=== PATIENT | male | born 2000 | race Caucasian/White ===

== ENCOUNTER 2022-08-15 13:50 | Emergency (ER) | payer OTHER, SELFPAY ==
--- NOTE | ~2022-08-15 | XR_ITS ---
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 The distal phalanx and the middle and proximal phalanges appear intact, without fracture or dislocation. No periosteal react ion or bone destruction. No radiopaque soft tissue foreign body or subcutaneous emphysema. IMPRESSION: Distal soft tissue amputation of second digit Reviewed, dictated and finalized at location A.
[2022-08-15 14:13] VITALS: BP 115/74; PULSE 90; RESP 16; TEMP 36.6; O2SAT 97
--- NOTE | 2022-08-15 14:47 | ED.WOUNDLAC ---
HPI - Wound/Laceration General Chief Complaint: Wound/Laceration Stated Complaint: R. index finger lac. Time Seen by Provider: 08/15/22 14:21 Source: patient Mode of arrival: ambulatory Limitations: no limitations History of Present Illness HPI narrative: The patient is a 21 yo male presenting to the ER for evaluation of right finger tip injury. 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 Patient is. Patient is up-to-date on his tetanus. Patient reports mild amount of bleeding at the site. Patient reports pain at the fingertip. Pain is aching in nature. Patient denies any pain in the joint spaces. Pt is reporting mild nausea also. Related Data Allergies Allergy/AdvReac Type Severity Reaction Status Date / Time No Known Allergies Allergy Verified 08/15/22 14:17 Review of Systems Review of Systems: CONSTITUTIONAL: Denies fever CARDIOVASCULAR: Denies chest pain RESPIRATORY: Denies cough or dyspnea. GASTROINTESTINAL: Denies abdominal pain, reports nausea SKIN: Denies rash, reports right finger tip laceration MUSCULOSKELETAL: Denies back pain NEUROLOGIC: Denies headache [facility] Social History Social History (Updated 08/15/22 @ 15:05 by Nona Olivarez MD) Smoking status: Never smoker Substance use: never Gender identity (if verbalized by the patient): Male Exam Narrative: GENERAL: Awake, alert, conversant HEAD: Normocephalic, atraumatic. EYES: PERRLA and EOMI. ENT: Nares clear, no rhinorrhea or epistaxis. Mucous membranes moist. NECK: Supple. CHEST: No respiratory distress, breathing even and non labored HEART: Regular rate, sinus rhythm ABDOMEN:Non distended, non tender EXTREMITIES: Normal range of motion. No edema. SKIN: No rash. Patient with right index finger pad amputation, no evidence of bone exposure. There is soft tissue injury. Partial nail amputation. Base of nail is intact. No subungual hematoma. Intact distal sensation. No active bleeding. NEURO:No focal deficits. Alert and oriented x3 Course Vital Signs Vital signs: Vital Signs Temperature 36.6 C 08/15/22 14:13 Pulse Rate 90 08/15/22 14:13 Respiratory Rate 16 08/15/22 14:13 Blood Pressure 115/74 08/15/22 14:13 Pulse Oximetry 97 08/15/22 14:13 Oxygen Delivery Room Air 08/15/22 14:13 Temperature 36.6 C 08/15/22 14:13 Pulse Rate 90 08/15/22 14:13 Respiratory Rate 16 08/15/22 14:13 Blood Pressure 115/74 08/15/22 14:13 Pulse Oximetry 97 08/15/22 14:13 Oxygen Delivery Room Air 08/15/22 14:13 MDM - Wound/Laceration MDM Narrative Medical decision making narrative: Medical decision making narrative: -Presentation: Patient presenting for evaluation of accidental finger pad amputation right index finger. Patient is neurovascularly intact at time of assessment. -DDX includes but is not limited to: Fingertip amputation, avulsion, open fracture -Co-morbidities complicating care: None -Social determinants of health: None -External Chart Review: No previous visits at our facility -Hx from independent Sources: None -Discussion of Management/Consultants:None -Independent interpretation of studies: X-ray per my interpretation without evidence of osseous injury Dx tests considered but not ordered: None -Procedures: -Interventions: Finger splint was placed for protection and pain control, pt given zofran for nausea -Shared decision making / Disposition:Pt wound was dressed and we discussed wound care and follow up. Pt then discharged home. Differential Diagnosis Differential diagnosis: Likely laceration, avulsion of skin and other (finger pad amputation) Discharge Plan Discharge Clinical Impression: Amputation of finger tip Patient Disposition: Home, Self-Care Condition: Stable Instructions: Skin Avulsion (ED) Additional Instructions: Please keep your wound clean and dry. Please
[2022-08-15] MEDS: ACETAMINOPHEN 500 MG TABLET 1000 MG PO (15:30)
[2022-08-15] MEDS: ONDANSETRON HCL ODT 4 MG TABLET PO (15:30)
== END 2022-08-15 16:07 | disposition home or self-care (01) ==
PROVIDERS: Emergency Provider Emergency Medicine
DX: S61.210A Laceration without foreign body of right index finger without damage to nail, initial encounter (principal); W26.0XXA Contact with knife, initial encounter
CPT/HCPCS: 29130; 73140; 99283; A9270